=== PATIENT | female | born 1975 | race Caucasian/White ===

== ENCOUNTER → 2024-02-04 18:11 | Outpatient (REF) | payer OTHER, SELFPAY | LOC: WDC 18:11 | PROVIDERS: ATTENDING PHYSICIAN Nurse Practitioner | DX: Z12.31 Encounter for screening mammogram for malignant neoplasm of breast (principal) | CPT/HCPCS: 77063; 77067 ==

== ENCOUNTER → 2024-03-10 16:57 | Outpatient (REF) | payer OTHER, SELFPAY | LOC: RAD 16:57 | PROVIDERS: ATTENDING PHYSICIAN Nurse Practitioner Adult Health | DX: R21 Rash and other nonspecific skin eruption (principal); R60.0 Localized edema; Z30.018 Encounter for initial prescription of other contraceptives | CPT/HCPCS: 93971 ==

== ENCOUNTER → 2024-12-01 16:12 | Outpatient (REF) | payer OTHER, SELFPAY | LOC: RAD 16:12 | PROVIDERS: ATTENDING PHYSICIAN Nurse Practitioner Adult Health | DX: R29.898 Other symptoms and signs involving the musculoskeletal system (principal); M54.2 Cervicalgia; M25.511 Pain in right shoulder | CPT/HCPCS: 72050; 73030 ==